=== PATIENT | female | born 1985 | race Caucasian/White ===

== ENCOUNTER 2016-12-13 04:47 | Emergency (ER) | payer OTHER ==
[~2016-12-13] VITALS: Ht 167.6 cm; Wt 73.4 kg
[~2016-12-13 04:47] MED LIST: BACTRIM,SEPT1 TABLET PO; CIPRO500 MG PO; ENDOCET 5-3251 EACH PO; Motrin PO; NOHOMEMEDS; NORCO 5/3251 TABLET PO; PYRIDIUM100 MG PO
[2016-12-13] MEDS ORDERED: AMOXICILLIN500 MG PO (04:58)
[2016-12-13] MEDS ORDERED: NAPROSYN500 MG PO (04:58)
[2016-12-13 05:15] VITALS: BP 117/73
== END 2016-12-13 05:16 | disposition home or self-care (01) ==
LOC: EME 04:47
DX: K08.89 Other specified disorders of teeth and supporting structures (principal); F17.200 Nicotine dependence, unspecified, uncomplicated
CPT/HCPCS: 99281; 99283

== ENCOUNTER 2017-07-10 16:56 | Emergency (ER) | payer OTHER ==
[~2017-07-10] VITALS: Ht 167.6 cm; Wt 68.2 kg
[~2017-07-10 16:56] MED LIST changes: +AMOXICILLIN500 MG PO; +NAPROSYN500 MG PO
[2017-07-10 19:48] VITALS: BP 92/63
== END 2017-07-10 19:49 | disposition home or self-care (01) ==
LOC: EME 16:56
DX: S06.0X0A Concussion without loss of consciousness, initial encounter (principal); S00.03XA Contusion of scalp, initial encounter; W10.9XXA Fall (on) (from) unspecified stairs and steps, initial encounter; Y92.39 Other specified sports and athletic area as the place of occurrence of the external cause; F17.200 Nicotine dependence, unspecified, uncomplicated
CPT/HCPCS: 70450; 99281; 99284; J7030